=== PATIENT | female | born 1990 | race Caucasian/White ===

== ENCOUNTER 2018-03-23 18:54 | Emergency (ER) | payer MEDICAID ==
[~2018-03-23 18:54] MED LIST: NO HOME MEDS; PHEN-824 PO
[2018-03-26] MEDS ORDERED: HYDR-4353 PO (12:57)
== END 2018-03-23 19:57 | disposition left against medical advice (07) ==
LOC: ER 18:54
DX: R10.9 Unspecified abdominal pain (principal); R11.10 Vomiting, unspecified

== ENCOUNTER 2018-04-22 14:47 | Emergency (ER) | payer MEDICAID ==
[~2018-04-22] VITALS: Ht 177.8 cm; Wt 72.7 kg
[~2018-04-22 14:47] MED LIST changes: +HYDR-4353 PO
[2018-04-22 15:34] VITALS: BP 120/70
[2018-04-22] MEDS ORDERED: ketorolac tromethamine 15mg/ml inj. IM ONE (18:35)
[2018-04-22] MEDS ORDERED: HYDR-4383 PO (20:05)
[2018-04-22] MEDS ORDERED: DOXY100C2 PO (20:05)
== END 2018-04-22 20:19 | disposition home or self-care (01) ==
LOC: ER 15:30
DX: S02.32XA Fracture of orbital floor, left side, initial encounter for closed fracture (principal); S02.2XXA Fracture of nasal bones, initial encounter for closed fracture; S00.12XA Contusion of left eyelid and periocular area, initial encounter; Z88.0 Allergy status to penicillin; Z79.899 Other long term (current) drug therapy; Y08.89XA Assault by other specified means, initial encounter; Y93.89 Activity, other specified; Y92.89 Other specified places as the place of occurrence of the external cause; Y99.8 Other external cause status
CPT/HCPCS: 70450; 70486; 96372; 99284; J1885

== ENCOUNTER 2018-05-03 00:26 | Emergency (ER) | payer MEDICAID ==
[~2018-05-03] VITALS: Ht 172.7 cm; Wt 70.0 kg
[~2018-05-03 00:26] MED LIST changes: +DOXY100C2 PO; -HYDR-4353 PO; +HYDR-4383 PO
--- NOTE | 2018-05-03 00:37 | NUR ---
ambulated to xray
[2018-05-03] MEDS ORDERED: HYDR-3965 PO (00:44)
[2018-05-03] MEDS ORDERED: ONDA4TAB6 PO (00:44)
--- NOTE | 2018-05-03 00:47 | NUR ---
ice pack given to patient for right hand pain and swelling
[2018-05-03] MEDS ORDERED: HYDROcodone/acetaminophen 10/325mg tab PO ONE (00:55)
[2018-05-03] MEDS ORDERED: ondansetron 4mg rapidly disintigrating tab PO ONE (00:55)
[2018-05-03] MEDS ORDERED: LIDOcaine 1% 30ml preserv. free vial IJ ONE (01:05)
--- NOTE | 2018-05-03 01:05 | NUR ---
due to no techs being allowed to do this common cast, orthopedics nurse had to be called in metal bonder to place cast
--- NOTE | 2018-05-03 01:26 | NUR ---
two rings, removed (cut-off ) from right ring finger. pt tolerated well.
--- NOTE | 2018-05-03 01:28 | NUR ---
certified medication technician called in to place splint. on his way
[2018-05-03 02:46] VITALS: BP 133/84
== END 2018-05-03 02:51 | disposition home or self-care (01) ==
LOC: ER 00:26
DX: S62.316A Displaced fracture of base of fifth metacarpal bone, right hand, initial encounter for closed fracture (principal); N39.0 Urinary tract infection, site not specified; Z88.0 Allergy status to penicillin; Z79.899 Other long term (current) drug therapy; W26.8XXA Contact with other sharp object(s), not elsewhere classified, initial encounter; Y93.89 Activity, other specified; Y92.89 Other specified places as the place of occurrence of the external cause; Y99.8 Other external cause status
CPT/HCPCS: 73130; 99283

== ENCOUNTER 2018-06-15 06:11 | Day surgery (SDC) | payer OTHER ==
[2018-06-15] VITALS (10 sets, daily range): BP systolic 109–131; BP diastolic 71–97
[~2018-06-15] VITALS: Ht 175.3 cm; Wt 74.7 kg
[~2018-06-15 06:11] MED LIST changes: -DOXY100C2 PO; -HYDR-4383 PO; +MESSAGE TO NURSING PO ONE; -PHEN-824 PO; +famotidine 20mg tablet PO ONE; +ringers solution, lacted 1,000 ML IV SCH
[2018-06-15] MEDS ORDERED: ceFAZolin inj. 2,000 MG in dextrose 5%-water 50ml 50 ML IV ONE (06:30)
[2018-06-15] MEDS ORDERED: IBUP-1984 PO (06:40)
[2018-06-15 07:26] LABS: BASOPHILS % (AUTO) 0.6 % (0-1); EOSINOPHILS # (AUTO) 0.2 X10'3 (0-0.9); EOSINOPHILS % (AUTO) 2.7 % (0-6); LYMPHOCYTES # (AUTO) 2.2 X10'3 (1.1-4.8); LYMPHOCYTES % (AUTO) 32.7 % (21-51); MEAN CORPUSCULAR HEMOGLOBIN 29.4 PG (27.0-31.0); MEAN CORPUSCULAR HGB CONC 33.6 g/dL (33.0-36.5); MEAN CORPUSCULAR VOLUME 87.4 FL (78-98); MEAN PLATELET VOLUME 8.4 FL (7.4-10.4); MONOCYTES # (AUTO) 0.5 X10'3 (0-0.9); NEUTROPHILS # (AUTO) 3.7 X10'3 (1.8-7.7); PRE OP HEMATOCRIT 35.7 % (35.0-45.0); PRE OP PLATELET COUNT 280 X10'3 (140-440); RED BLOOD COUNT 4.09 X10'6 (4.20-5.60); RED CELL DISTRIBUTION WIDTH 14.2 % (11.5-14.5)
[2018-06-15 07:46] LABS: ALBUMIN 3.4 G/DL (3.4-5.0); ALKALINE PHOSPHATASE 79 IU/L (46-116); BLOOD UREA NITROGEN 16 MG/DL (7-18); BUN/CREATININE RATIO 18.6 (6.6-38.0); CALCIUM 8.5 MG/DL (8.5-10.1); CHLORIDE 108 MMOL/L (99-107); CREATININE 0.86 MG/DL (0.40-0.90); PRE OP ANION GAP 8 (8-16); PRE OP AST 34 U/L (10-37); PRE OP BILIRUB, TOTAL 0.6 MG/DL (0.0-1.0); PRE OP GLUCOSE 82 MG/DL (70-104); PRE OP POTASSIUM 3.8 MMOL/L (3.4-5.1); PRE OP SODIUM 143 MMOL/L (135-145); TOTAL CARBON DIOXIDE 27.5 MMOL/L (24-32); TOTAL PROTEIN 6.8 G/DL (6.4-8.2); eGFR 77 ML/MIN
[2018-06-15 07:48] LABS: PRE OP ALT 84 U/L (30-65)
[2018-06-15] MEDS ORDERED: bacitracin 15gm ointment TP ONE (10:52)
[2018-06-15] MEDS ORDERED: BUPIVAcaine/PF 2.5mg/ml (0.25%) 10ml vial ONE (10:52)
[2018-06-15] MEDS ORDERED: dexamethasone sod phosphate 10mg/ml inj ONE (10:55)
[2018-06-15] MEDS ORDERED: sevoflurane 250ml liquid IH ONE (10:55)
[2018-06-15] MEDS ORDERED: fentaNYL/PF 50MCG/1 ML 2ML syringe ONE ×2 (10:59→11:29)
[2018-06-15] MEDS ORDERED: midazolam 2 mg/2 ml injection ONE (10:59)
[2018-06-15] MEDS ORDERED: propofol inj 20 ML IV ONE (11:08)
[2018-06-15] MEDS ORDERED: LIDOcaine 2% (20mg/ml) 5ml vial ONE (11:08)
[2018-06-15] MEDS ORDERED: ondansetron/PF 4mg/2ml inj ONE ×2 (11:14→12:38)
--- NOTE | 2018-06-15 12:25 | NUR ---
Received from OR via BED, accompanied by Anesthesiologist DR ESQUIVEL and report given by Anesthesiolgist. PATIENT A&OX4, DENIES PAIN, V/S WNL, NEUROVASCULAR CHECKS INTACT, 20G PIV LUE, SCD ON, DRESSING / SPLINT TO RIGHT WRIST CDI ELEVATED WITH ICEBAG APPLIED.
[2018-06-15] MEDS ORDERED: meperidine/PF 25mg/ml syringe ONE (13:00)
--- NOTE | 2018-06-15 13:35 | NUR ---
PATIENT A&OX4, DENIES PAIN, V/S WNL, NEUROVASCULAR CHECKS INTACT, 20G PIV LUE D/C, SCD OFF, DRESSING / SPLINT TO RIGHT WRIST CDI ELEVATED WITH ICEBAG APPLIED.. I HAVE REVIEWED D/C INSTRUCTIONS WITH PATIENT AND GUARD AND THEY HAVE VERBALIZED UNDERSTANDING. PATIENT D/C TO PENITENTIARY WITH ALL BELONGINGS AND GUARD GAVE TRANSPORT PENITENTIARY.
== END 2018-06-15 13:35 ==
LOC: PAS 06:11 → EEVIPCON 10:00 → PAS 13:35
PROVIDERS: ATTEND Orthopaedic Surgery
DX: S62.306P Unspecified fracture of fifth metacarpal bone, right hand, subsequent encounter for fracture with malunion (principal); X58.XXXD Exposure to other specified factors, subsequent encounter; Z88.0 Allergy status to penicillin
CPT/HCPCS: 26615; 36415; 80053; 85025; A6449; C1713; J0690; J1100; J2001; J2175; J2250; J2405; J2704; J3010; J3490; J7060; A7000; J7120

== ENCOUNTER 2019-01-22 19:06 | Emergency (ER) | payer MEDICAID, OTHER ==
[~2019-01-22 19:06] MED LIST changes: +IBUP-1984 PO; -MESSAGE TO NURSING PO ONE; -famotidine 20mg tablet PO ONE; -ringers solution, lacted 1,000 ML IV SCH
== END 2019-01-22 20:34 | disposition left against medical advice (07) ==
LOC: ER 19:06
DX: N15.9 Renal tubulo-interstitial disease, unspecified (principal); Z53.21 Procedure and treatment not carried out due to patient leaving prior to being seen by health care provider